=== PATIENT | female | born 1935 | race Caucasian/White ===

== ENCOUNTER 2022-01-05 10:07 | Emergency (ER) | payer OTHER ==
[~2022-01-05] VITALS: Ht 162.6 cm; Wt 45.8 kg
[2022-01-05] MEDS ORDERED: NAPR-1009 PO (11:19)
[2022-01-05] MEDS ORDERED: HYDR-3974 PO (11:19)
[2022-01-05] MEDS ORDERED: HYDROCODONE/APAP 5-325MG TABLET PO ONE (11:30)
[2022-01-05] MEDS ORDERED: HYDROCODONE/APAP 5-325MG TABLET ONE (11:30)
--- NOTE | 2022-01-05 11:40 | NUR ---
ER requested floor service worker spring Maryann Rojas to speak to pt's family regarding Pt's home status after discharge. Pt is aware of discharge and wants to go home.
--- NOTE | 2022-01-05 11:56 | NUR ---
Pt's nahomi spoke to ER MD and rider ticket worker for pt to stay in hospital.
--- NOTE | 2022-01-05 12:00 | NUR ---
SW provided the patient's family with information for [facility] [phone] that is covered by [employer] health insurance.
--- NOTE | 2022-01-05 12:10 | NUR ---
Pt is able to walk w/ steday gait.
--- NOTE | 2022-01-05 12:55 | NUR ---
IV removed. Catheter intact and site benign. Pressure and 4x4 gauze applied to site. No bleeding noted.
[2022-01-05 12:56] VITALS: BP 150/91
--- NOTE | 2022-01-05 12:56 | NUR ---
Patient discharged to home in stable condition. Written and verbal after care instructions given. Patient's son, Luis Mueller and pt verbalize understanding of instructions. Stressed follow up or return to ER for worsening s/s. Assissted pt to son's car w/ wheelchair.
== END 2022-01-05 12:57 | disposition home or self-care (01) ==
LOC: ER 10:07
DX: S42.212A Unspecified displaced fracture of surgical neck of left humerus, initial encounter for closed fracture (principal); W01.0XXA Fall on same level from slipping, tripping and stumbling without subsequent striking against object, initial encounter; Y92.89 Other specified places as the place of occurrence of the external cause; I10 Essential (primary) hypertension; E78.5 Hyperlipidemia, unspecified; Z88.0 Allergy status to penicillin
CPT/HCPCS: 73030; 73060; A4663